=== PATIENT | male | born 1990 | race Caucasian/White ===

== ENCOUNTER 2025-02-22 01:13 | Emergency (ER) | payer OTHER ==
[~2025-02-22] VITALS: Ht 170.2 cm; Wt 90.7 kg
[2025-02-22 01:26] VITALS: BP 160/74; TEMP 98.9
[2025-02-22 03:04] VITALS: O2SAT 95
== END 2025-02-22 03:05 | disposition home or self-care (01) ==
LOC: ER 01:18
DX: S60.445A External constriction of left ring finger, initial encounter (principal); I10 Essential (primary) hypertension; W49.04XA Ring or other jewelry causing external constriction, initial encounter; Y93.89 Activity, other specified; Y92.89 Other specified places as the place of occurrence of the external cause; Y99.8 Other external cause status